=== PATIENT | male | born 1980 | race Caucasian/White ===

== ENCOUNTER 2019-04-26 11:55 | Emergency (ER) | payer SELFPAY ==
[~2019-04-26] VITALS: Ht 175.3 cm; Wt 81.6 kg
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
[2019-04-26 12:51] VITALS: BP 165/104
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
[2019-04-26] MEDS ORDERED: HYDR-3165 PO (13:37)
[2019-04-26] MEDS ORDERED: LIDOCAINE 1% Multi-Dose 20 ML VIAL. IJ ONE (14:00)
[2019-04-26] MEDS ORDERED: NAPROXEN 500 MG TABLET PO ONE (14:15)
== END 2019-04-26 14:08 | disposition home or self-care (01) ==
LOC: ER 11:55
DX: S01.511A Laceration without foreign body of lip, initial encounter (principal); S01.01XA Laceration without foreign body of scalp, initial encounter; V43.52XA Car driver injured in collision with other type car in traffic accident, initial encounter; Y93.I9 Activity, other involving external motion; Y92.488 Other paved roadways as the place of occurrence of the external cause; Y99.8 Other external cause status
CPT/HCPCS: 12011; 40650; 70450; 72125; 99284-25